=== PATIENT | male | born 1990 | race African-American/Black ===

== ENCOUNTER 2017-08-30 10:26 | Emergency (ER) | payer SELFPAY ==
[2017-08-30] MEDS ORDERED: CONTRAST GIVEN MC ×2 (11:15)
[2017-08-30] MEDS: IOHEXOL 240 MG/ML 50ML VIAL. PO ×2 (11:15)
[2017-08-30] MEDS: IOHEXOL 300 MG/ML 100ML VIAL. IV ×2 (11:15)
[2017-08-30] MEDS: IV NORMAL SALINE 1000ML BAG 1,000 ML IV ×2 (11:30)
[2017-08-30 11:36] LABS: ADD MAN DIFF? NO
[2017-08-30 11:42] LABS: BASO % 0 % (0-3); EOS # 0.2 x10^3/uL (0.0-0.7); EOS % 5 % (0-3); HEMOGLOBIN 16.9 g/dL (13.0-17.5); LYMPH # 1.2 x10^3/uL (1.0-4.8); LYMPH % 23 % (24-48); MEAN CORPUSCULAR HEMOGLOBIN 29 pg (25-35); MEAN CORPUSCULAR HGB CONC 33 g/dL (31-37); MEAN CORPUSCULAR VOLUME 86 fL (79-100); MONO # 0.9 x10^3/uL (0.0-1.1); MONO % 17 % (0-9); NEUT # 2.9 x10^3uL (1.8-7.7); NEUT % 55 % (31-73); PLATELET COUNT 237 x10^3/uL (140-400); RED BLOOD COUNT 5.92 x10^6/uL (4.30-5.70); RED CELL DISTRIBUTION WIDTH 13.4 % (11.5-14.5); WHITE BLOOD COUNT 5.2 x10^3/uL (4.0-11.0)
[2017-08-30 11:52] LABS: ANION GAP 7 (6-14); BLOOD UREA NITROGEN 13 mg/dL (8-26); CALCIUM 8.9 mg/dL (8.5-10.1); CARBON DIOXIDE 31 mmol/L (21-32); CHLORIDE 102 mmol/L (98-107); GFR 106.9; GLUCOSE 96 mg/dL (70-99); SODIUM 140 mmol/L (136-145)
[2017-08-30 11:58] LABS: ALBUMIN 3.9 g/dL (3.4-5.0); ALK PHOS 59 U/L (46-116); ALT (SGPT) 21 U/L (16-63); AST (SGOT) 17 U/L (15-37); DIRECT BILIRUBIN 0.3 mg/dL (0.0-0.2); LIPASE 110 U/L (73-393); TOTAL BILIRUBIN 1.3 mg/dL (0.2-1.0); TOTAL PROTEIN 7.2 g/dL (6.4-8.2)
[2017-08-30 12:00] LABS: INR 1.2 (0.8-1.1); PARTIAL THROMBOPLASTIN TIME 31 SEC (24-38)
[2017-08-30 12:08] LABS: CKMB MASS < 0.5 ng/mL (0.0-3.6); CREATINE KINASE 197 U/L (39-308)
[2017-08-30 12:20] LABS: BILIRUBIN,URINE NEGATIVE (NEG); CLARITY,URINE CLEAR; COLOR,URINE AMBER; GLUCOSE,URINE NEGATIVE (NEG); NITRITE,URINE NEGATIVE (NEG); PROTEIN,URINE NEGATIVE (NEG-TRACE)
[2017-08-30 12:22] LABS: BARBITURATES NEG (NEG); BENZODIAZEPINES NEG (NEG); CANNABINOIDS POS (NEG); COCAINE NEG (NEG); METHADONE NEG (NEG); OPIATES NEG (NEG); PHENCYCLIDINE NEG (NEG)
[2017-08-30 12:23] LABS: AMPHETAMINE/METHAMPHETAMINE NEG (NEG); ETHANOL, URINE NEG (NEG)
[2017-08-30 12:27] LABS: FECAL OB PT NEGATIVE (NEG); NEG OBC FOB NEG; POS OBC FOB POS
[2017-08-30 12:29] LABS: BACTERIA,URINE FEW /HPF (0-FEW); RBC,URINE 0 /HPF (0-2); SQUAMOUS EPITHELIAL CELL,UR MOD /LPF
== END 2017-08-30 13:23 | disposition home or self-care (01) ==
LOC: ER 10:26
DX: K64.9 Unspecified hemorrhoids (principal); N30.00 Acute cystitis without hematuria
CPT/HCPCS: 36415; 74177; 80048; 80076; 80307; 81001; 82274; 82553; 83690; 85025; 85610; 85730; 87086; 96360; 99285-25; J7030; Q9966; Q9967

== ENCOUNTER 2020-05-13 18:06 | Emergency (ER) | payer SELFPAY ==
[~2020-05-13] VITALS: Ht 170.2 cm; Wt 68.0 kg
[~2020-05-13 18:06] MED LIST: CIPR500T94 PO; HYDR-3164 PO; HYDR25SU18 RC
[2020-05-13 18:18] VITALS: BP 122/67
--- NOTE | 2020-05-13 18:22 | PHYS DOC ---
Past Medical History Past Medical History: No Pertinent History Past Surgical History: No Surgical History Smoking Status: Current Every Day Smoker Alcohol Use: Occasionally Drug Use: None General Adult EDM: Chief Complaint: SEXUALLY TRANSMITTED DISEASE HPI: HPI: Patient is a 30 year old male who presents with penile discharge that started today. He states he has had sexual intercourse with 2 different partners and unsure if they have STD symptoms or not. Patient denies dyuria symtoms, abdominal pain, nausea, vomiting, chest pain, fever, cough, diarrhea. Denies any pain. States he has had STD's in the past. Review of Systems: Review of Systems: Constitutional: Denies fever or chills. [] Eyes: Denies change in visual acuity. [] HENT: Denies nasal congestion or sore throat. [] Respiratory: Denies cough or shortness of breath. [] Cardiovascular: Denies chest pain or edema. [] GI: Denies abdominal pain, nausea, vomiting, bloody stools or diarrhea. [] : Denies dysuria. Penile Discharge. [] Musculoskeletal: Denies back pain or joint pain. [] Integument: Denies rash. [] Neurologic: Denies headache, focal weakness or sensory changes. [] Endocrine: Denies polyuria or polydipsia. [] Lymphatic: Denies swollen glands. [] Psychiatric: Denies depression or anxiety. [] Heart Score: Risk Factors: Risk Factors: DM, Current or recent (<one month) smoker, HTN, HLP, family history of CAD, obesity. Risk Scores: Score 0 - 3: 2.5% MACE over next 6 weeks - Discharge Home Score 4 - 6: 20.3% MACE over next 6 weeks - Admit for Clinical Observation Score 7 - 10: 72.7% MACE over next 6 weeks - Early Invasive Strategies Allergies: Allergies: Allergies Coded Allergies Type Severity Reaction Last Updated Verified No Known Drug Allergies 11/16/15 No Physical Exam: PE: Constitutional: Well developed, well nourished, no acute distress, non-toxic appearance. [] HENT: Normocephalic, atraumatic, bilateral external ears normal, oropharynx moist, no oral exudates, nose normal. [] Eyes: PERRLA, EOMI, conjunctiva normal, no discharge. [] Neck: Normal range of motion, no tenderness, supple, no stridor. [] Cardiovascular:Heart rate regular rhythm, no murmur [] Lungs & Thorax: Bilateral breath sounds clear to auscultation [] Abdomen: Bowel sounds normal, soft, no tenderness, no masses, no pulsatile masses. [] Skin: Warm, dry, no erythema, no rash. [] Back: No tenderness, no CVA tenderness. [] Extremities: No tenderness, no cyanosis, no clubbing, ROM intact, no edema. [] Neurologic: Alert and oriented X 3, normal motor function, normal sensory function, no focal deficits noted. [] Psychologic: Affect normal, judgement normal, mood normal. Normal Physical Exam [] EKG: EKG: [] Radiology/Procedures: Radiology/Procedures: [] Course & Med Decision Making: Course & Med Decision Making Pertinent Labs and Imaging studies reviewed. (See chart for details) See HPI. Alert and oriented x4. No penile discharge seen and no penile sores. Abdomen is soft and nontender. Patient is treated with Rocephin and Azithromycin today in the ED. He is educated that the results will come back in 48 hours and he will be called only if something comes back positive. Ambulatory with a steady gait. Speaks in full clear sentences. Vital signs within normal limits. Afebrile. [] Dragon Disclaimer: Dragon Disclaimer: This electronic medical record was generated, in whole or in part, using a voice recognition dictation system. Departure Departure Impression: Primary Impression: Concern about STD in female without diagnosis Disposition: 01 DC HOME SELF CARE/HOMELESS Condition: STABLE Referrals: NO PCP (PCP) Patient Instructions: Sexually Transmitted Disease, [id number] Additional Instructions: Follow-up with a primary care physician if needed. You were treated today for sexually transmitted diseases chlamydia and gonorrhea. You will be called in 48 hours if something comes back on you are test. ANDREW NATH DIE MAINTENANCE May 13, 2020 18:22
[2020-05-13 18:27] LABS: BILIRUBIN,URINE NEGATIVE (NEG); CLARITY,URINE CLOUDY; COLOR,URINE YELLOW; NITRITE,URINE NEGATIVE (NEG); PROTEIN,URINE 30 mg/dL (NEG-TRACE)
[2020-05-13] MEDS ORDERED: AZITHROMYCIN 250 MG TABLET. PO ONE (18:30)
[2020-05-13] MEDS ORDERED: cefTRIAXone IM 250 MG VIAL IM ONE (18:30)
[2020-05-13 18:34] LABS: WBC,URINE TNTC /HPF (0-4)
[2020-05-13 18:40] LABS: BACTERIA,URINE FEW /HPF (0-FEW)
== END 2020-05-13 19:23 | disposition home or self-care (01) ==
LOC: ER 18:06
DX: Z20.2 Contact with and (suspected) exposure to infections with a predominantly sexual mode of transmission (principal); F17.200 Nicotine dependence, unspecified, uncomplicated
CPT/HCPCS: 81001; 87086; 87491; 87591; 96372; 99283; J0696